=== PATIENT | female | born 1970 | race Hispanic/Latino ===

== ENCOUNTER 2016-12-24 17:53 | Emergency (ER) | payer OTHER ==
[~2016-12-24] VITALS: Ht 157.5 cm; Wt 65.8 kg
[~2016-12-24 17:53] MED LIST: CIPRO 500MG TA500 MG PO; HYDROCODONE/ACE1 TA1 PO; LANTUS100 U/ML SC; NOVOLOG100 U/ML SC; PHENERGAN25 M1 PO; ZOFRAN ODT4 MG PO
[2016-12-24 18:12] VITALS: BP 145/85
--- NOTE | 2016-12-24 20:15 | ED GENERAL ADULT ---
History of Present Illness General Chief Complaint: General Adult Stated Complaint: CHEST PAIN, URI SYMTPOMS Source: patient, family Exam Limitations: no limitations Vital Signs & Intake/Output Vital Signs & Intake/Output Vital Signs Date Time Temp Pulse Resp B/P Pulse O2 O2 Flow FiO2 Ox Delivery Rate 12/24 2030 101.1 12/24 1812 101.1 106 18 145/85 97 Room Air Allergies Coded Allergies: No Known Allergies (02/03/16) Reconcile Medications Benzonatate (Tessalon Perle) 100 MG CAPSULE 1 CAP PO TID PRN COUGH HYDROCODONE/ACETAMINOPHEN (Hydrocodon-Acetaminophen 5-325) 1 TAB TAB 1-2 TAB PO Q6P PRN PAIN Ibuprofen 600 MG TABLET 1 TAB PO TID PRN pain/fevers with food Insulin Aspart, Recombinant (Novolog) 100 U/ML OBED 0 UNITS SC TIDAC GLUCOSE CONTROL (Reported) BLOOD SUGAR # OF UNITS < 80 NONE 80-150 NONE 151-200 4 UNITS 201-250 6 UNITS 251-300 8 UNITS 301-350 10 UNITS 351-400 12 UNITS >400 14 UNITS and call Insulin Glargine, Recombinan (Lantus) 100 U/ML OBED 14 UNITS SC BID DIABETES ( Reported) Ondansetron (Zofran Odt) 4 MG ODT 1 TAB PO Q6P PRN NAUSEA Ondansetron (Zofran Odt) 4 MG TAB.RAPDIS 1 TAB SL TID PRN nausea Oseltamivir Phosphate (Tamiflu) 75 MG CAPSULE 1 CAP PO BID influenza Promethazine Hydrochloride (Phenergan) 25 MG TAB 1 TAB PO Q8P PRN NAUSEA Triage Note: REPORTS GENERALIZED BODY ACHES AND COUGH THAT STARTED YESTERDAY AND WORSENING SINCE. NOTED TO BE FEBRILE AT 101.1 Triage Nurses Notes Reviewed? yes : No Patient currently breastfeeds: No HPI: Patient is a 46-year-old female presents complaining of body aches, cough, fevers, headaches. Symptoms onset yesterday. Cough is nonproductive. Patient reports her blood sugars have been in the 220s at home. Patient has been taking DayQuil and NyQuil with no improvement. Symptoms are currently severe. Patient denies sick contacts, recent travel, has not had an influenza vaccination this season. (JOHN CRESPO,JOSE) Past History Travel History Traveled to [place] past 21 day No Medical History Any Pertinent Medical History? see below for history Neurological: NONE EENT: NONE Cardiovascular: NONE Respiratory: NONE Gastrointestinal: NONE Hepatic: NONE Renal: NONE Musculoskeletal: NONE Psychiatric: NONE Endocrine: diabetes Blood Disorders: NONE Cancer(s): NONE NAPHTHALENE OPERATOR/Reproductive: NONE Surgical History Surgical History: oophorectomy Psychosocial History What is your primary language Sinhala Tobacco Use: Quit <30 days ago Family History Hx Contributory? No (JOSE LOTT) Review of Systems Review of Systems Constitutional: Reports: chills, fever, malaise. EENTM: Reports: nasal congestion. Respiratory: Reports: cough. Cardiovascular: Reports: chest pain. GI: Reports: nausea, vomiting. Denies: abdominal pain. Musculoskeletal: Reports: muscle pain. Skin: Reports: no symptoms. Neurological/Psychological: Reports: headache. Hematologic/Endocrine: Reports: see HPI. Immunologic/Allergic: Reports: no symptoms. (JOSE LOTT) Physical Exam Physical Exam General Appearance: well developed/nourished, alert, awake Head: atraumatic, normal appearance Eyes: Bilateral: normal appearance, PERRL, EOMI. Ears, Nose, Throat: normal pharynx, normal ENT inspection, hearing grossly normal, nasal congestion Neck: normal inspection, supple, full range of motion Respiratory: normal breath sounds, no respiratory distress, lungs clear Cardiovascular: regular rate/rhythm (no appreciable murmur) Gastrointestinal: soft, non-tender Back: normal inspection, normal range of motion Extremities: normal inspection, normal capillary refill, normal range of motion, no edema Neurologic/Psych: no motor/sensory deficits, awake, alert, oriented x 3, normal gait, normal mood/affect Skin: intact, normal color, warm/dry Lymphatic: no anterior cervical gayathri Core Measures ACS in differential dx? No CVA/TIA Diagnosis: No Severe Sepsis Present: No Septic Shock Present: No (JOSE LOTT) Progress Differential Diagnoses I considered the following diagnoses in my evaluation of the patient: Influenza, pneumonia, viral syndrome, diabetic emergency Plan of Care: Orders Procedure Date/time Status FingerStick- Glucose 12/24 2019 Active RAPID VIRAL INFLUENZA A 12/24 1815 Complete EKG 12/24 175 Active Patient nontoxic appearing. Patient tolerated water and oral Ibuprofen in the ED. appears stable for discharge. (JOSE LOTT) Initial ED EKG: sinus rhythm, no acute ST/T-wave abnormalities (JOSE LOTT) Departure Departure Time of Disposition: 2023 Disposition: HOME OR SELF CARE Condition: Stable Clinical Impression Primary Impression: Influenza Referrals: YUDI SALCEDO MD (PCP/Family) Additional Instructions: Drink plenty fluids and rest. Follow-up with her primary care provider if no improvement within 3-4 days. Tylenol every 4-6 hours as needed for fevers. Return to the emergency department if difficulty breathing, unable to say hydrated, or worsening of symptoms. Departure Forms: Customer Survey General Discharge Information Prescriptions: Current Visit Scripts Oseltamivir Phosphate (Tamiflu) 1 CAP PO BID #10 CAP Ibuprofen 1 TAB PO TID PRN pain/fevers #15 TAB with food Ondansetron (Zofran Odt) 1 TAB SL TID PRN nausea #10 TAB Benzonatate (Tessalon Perle) 1 CAP PO TID PRN COUGH #21 CAP (JOSE LOTT) PA/KNITTING SUPERVISOR Co-Sign Statement Statement: ED Attending supervision documentation- [] I saw and evaluated the patient. I have also reviewed all the pertinent lab results and diagnostic results. I agree with the findings and the plan of care as documented in the PA's/KNITTING SUPERVISOR's documentation. [X] I have reviewed the ED Record and agree with the PA's/KNITTING SUPERVISOR's documentation. [] Additions or exceptions (if any) to the PAs/KNITTING SUPERVISOR's note and plan are summarized below: [] (CHRISTY BRO,CHANDRIKA) Critical Care Note Critical Care Note Critical Care Time: non-applicable (JOSE LOTT)
[2016-12-24] MEDS ORDERED: IBUPROFEN600 M1 PO (20:26)
[2016-12-24] MEDS ORDERED: TAMIFLU75 M1 PO (20:26)
[2016-12-24] MEDS ORDERED: ZOFRAN ODT4 M1 SL (20:26)
[2016-12-24] MEDS ORDERED: TESSALON PERLE100 M1 PO (20:26)
== END 2016-12-24 20:32 ==
LOC: ERH 17:53
DX: R07.9 Chest pain, unspecified (principal); J11.1 Influenza due to unidentified influenza virus with other respiratory manifestations; Z87.891 Personal history of nicotine dependence
CPT/HCPCS: 87804; 87804-59; 93005; 93010

== ENCOUNTER 2017-03-07 16:45 | Emergency (ER) | payer OTHER ==
[~2017-03-07] VITALS: Ht 157.5 cm; Wt 68.5 kg
[~2017-03-07 16:45] MED LIST changes: +IBUPROFEN600 M1 PO; +TAMIFLU75 M1 PO; +TESSALON PERLE100 M1 PO; +ZOFRAN ODT4 M1 SL
--- NOTE | 2017-03-07 18:38 | ED GENERAL ADULT ---
History of Present Illness General Chief Complaint: General Adult Stated Complaint: SENT BY OB FOR IRREGULAR LABS Source: patient Exam Limitations: no limitations Vital Signs & Intake/Output Vital Signs & Intake/Output Vital Signs Date Time Temp Pulse Resp B/P Pulse O2 O2 Flow FiO2 Ox Delivery Rate 03/07 1941 97.3 87 16 160/86 100 Room Air 03/07 1707 97.3 98 20 154/82 100 Room Air Room Air Allergies Coded Allergies: No Known Allergies (02/03/16) Reconcile Medications Insulin Aspart (Novolog) 100 UNIT/ML VIAL 10 UNITS SC BID DM (Reported) Insulin Aspart, Recombinant (Novolog Flexpen) 100 UNIT/ML INSULN.PEN 8 UNITS SC QAM DM (Reported) Insulin Glargine,Hum.rec.anlog (Lantus Solostar) 100 UNIT/ML (3 ML) INSULN.PEN 15 UNITS SC BID DM (Reported) Labetalol HCl 100 MG TABLET 1 TAB PO BID BP (Reported) Lisinopril 5 MG TABLET 1 TAB PO DAILY BP (Reported) Promethazine Hydrochloride (Phenergan) 25 MG TAB 1 TAB PO Q8P PRN NAUSEA Triage Note: PT TO ED FROM PMD DR SALCEDO, SENT IN FOR ABNORMAL BLOODWORK FOR HGB 9.8, HCT 32.4 ON 03/04/17. Triage Nurses Notes Reviewed? yes Onset: Gradual Duration: week(s): (1) Timing: no prior history Injury Environment: home Severity: moderate : No Patient currently breastfeeds: No HPI: Patient is a 46-year-old female presenting to the emergency department for "irregular labs". Patient reports that she saw her primary care physician the other day and had routine blood work and it showed that she was anemic and she was told by her doctor to come to the emergency department for evaluation. Patient reports that over the past 3 months she has haD increased blood flow with her menstruation. Currently on her period that started 3-4 days ago. Passing intermittent clots. She is not soaking more than 1 pad an hour. Denies any lightheadedness or dizziness. No malaise or fatigue. No fevers or chills. Denies any urinary frequency urgency or dysuria. She does report that she may have felt short of breath with a long amount of exertion. No abdominal pain. No chest pain or palpitations. History of anemia in the past. Denies any hematuria. No coughing up blood. Denies any blood in stool. (ED SARABIA) Past History Travel History Traveled to [place] past 21 day No Medical History Any Pertinent Medical History? see below for history Neurological: NONE EENT: NONE Cardiovascular: NONE Respiratory: NONE Gastrointestinal: NONE Hepatic: NONE Renal: NONE Musculoskeletal: NONE Psychiatric: NONE Endocrine: diabetes Blood Disorders: NONE Cancer(s): NONE DOCTORATE OF CHIROPRACTIC/Reproductive: NONE Surgical History Surgical History: oophorectomy Psychosocial History What is your primary language Omani Tobacco Use: Never used ETOH Use: denies use Illicit Drug Use: denies illicit drug use Family History Hx Contributory? No (ED SARABIA) Review of Systems Review of Systems Constitutional: Reports: no symptoms. Comments Review of systems: See HPI, All other systems negative. Constitutional, no chills fever or weight loss HEENT: No visual changes no sore throat no congestion Cardiovascular: No chest pain ,palpitation , orthopnea or ankle swelling Skin, no jaundice no rashes Respiratory: No cough sputum or hemoptysis GI: No nausea no vomiting : No dysuria No hematuria Muscle skeletal: no back pain, no neck pain, Neurologic: No numbness no confusion Psych: No stress anxiety or depression,. Heme/endocrine: No bruising no bleeding no polyuria or polydipsia Immunology: No splenectomy or history of AIDS (ED SARABIA) Physical Exam Physical Exam General Appearance: well developed/nourished, no apparent distress, alert, comfortable Comments: Well-developed well-nourished person in no acute distress HEENT: Pupils equally round and reactive to light and accommodation. Nose is atraumatic. External auditory canal and Tympanic membranes clear. Pharynx normal. No swelling or edema. No pallor noted to palpable conjunctiva bilaterally. No oral pallor noted. Neck: Normal infection Back: Nontender, no CVA tenderness. Full range of motion Cardiovascular: Regular rate and rhythms no murmurs rubs or gallops, normal JVP Respiratory: Chest nontender. No respiratory distress.breath sounds clear to auscultation bilaterally Abdomen: Soft, nontender nondistended, no appreciable organomegaly. Normal bowel sounds. No ascites, no rebound or guarding. RECTAL: Deferred by patient Extremity: No edema Neuro: Alert oriented x3 Skin: No appreciable rash on exposed skin, skin is warm and dry. Psych: Mood and affect is normal, memory and judgment is normal. Core Measures ACS in differential dx? No CVA/TIA Diagnosis: No Severe Sepsis Present: No Septic Shock Present: No (ED SARABIA) Progress Differential Diagnoses I considered the following diagnoses in my evaluation of the patient: Acute on chronic anemia, dysmenorrhea, symptomatic anemia, dehydration, electrolyte abnormality Plan of Care: Orders Procedure Date/time Status Consistent Carbohydrate 1 03/07 D Active TYPE & SCREEN (NOT X-MATCH) 03/07 1931 Active MISTAKE 03/07 1925 Active FingerStick- Glucose 03/07 1925 Active TOTAL IRON BINDING CAPACITY 03/07 1837 Complete PARTIAL THROMBOPLASTIN TIME 03/07 1837 Complete PROTHROMBIN TIME 03/07 1837 Complete SERUM IRON 03/07 1837 Complete COMPREHENSIVE METABOLIC PANEL 03/07 1837 Complete CBC WITHOUT DIFFERENTIAL 03/07 1837 Complete VITAMIN B12 03/07 1837 Complete Laboratory Tests 03/07/17 1851: Anion Gap 11, Estimated GFR > 60, BUN/Creatinine Ratio 26.7 H, Glucose 213 H, Calcium 9.7, Iron 30 L, TIBC 446, Total Bilirubin 0.5, AST 28, ALT 40, Alkaline Phosphatase 74, Total Protein 7.7, Albumin 4.3, Globulin 3.4, Albumin/Globulin Ratio 1.3, Vitamin B12 798, PT 10.1, INR 0.96, APTT 29, CBC w Diff NO MAN DIFF REQ, RBC 3.66 L, MCV 81.2, MCH 26.1 L, RDW 17.6 H, MPV 9.2, Gran % 74.2, Lymphocytes % 20.1 L, Monocytes % 3.8, Eosinophils % 1.2, Basophils % 0.7, Absolute Granulocytes 6.5, Absolute Lymphocytes 1.8, Absolute Monocytes 0.3, Absolute Eosinophils 0.1, Absolute Basophils 0.1, PUBS MCHC 32.2 L Initial ED EKG: none Comments: On arrival patient is awake alert oriented 3, vitals are stable. No abdominal pain on exam. Patient reports that she currently having a heavy menstrual period has been for the past 3 months every time she gets it. She is currently on day 3 or 4. She had routine blood work done by her primary care physician which revealed anemia. H&H is slightly low, patient has history of anemia. She is currently asymptomatic, vitals are stable. No indications of acute blood loss. She is not saturating more than 1 pad an hour. She will follow-up with her LOCATION ANALYST for further evaluation, may need some type of hormonal regulation to help with dysmenorrhea. They also tried her H&H to ensure that she does not need blood transfusions in the for future. No indication for blood transfusion at this time. No history of cardiac issues. (ED SARABIA) Departure Departure Time of Disposition: 2041 Disposition: HOME OR SELF CARE Condition: Stable Clinical Impression Primary Impression: Anemia Qualifiers: Anemia type: unspecified type Qualified Code: D64.9 - Anemia, unspecified Secondary Impressions: Dysmenorrhea Referrals: YUDI SALCEDO MD (PCP/Family) Additional Instructions: FOLLOW UP with your LOCATION ANALYST they will need to follow your blood levels. Increase fluids. Return for any worsening symptoms or concerns. Return if you're saturating more than 1 pad an hour. Departure Forms: Customer Survey General Discharge Information (ED SARABIA) PA/TICKET WORKER Co-Sign Statement Statement: ED Attending supervision documentation- [] I saw and evaluated the patient. I have also reviewed all the pertinent lab results and diagnostic results. I agree with the findings and the plan of care as documented in the PA's/TICKET WORKER's documentation. x I have reviewed the ED Record and agree with the PA's/TICKET WORKER's documentation. [] Additions or exceptions (if any) to the PAs/TICKET WORKER's note and plan are summarized below: [] (LAYA BRO,EVERARDO) Critical Care Note Critical Care Note Critical Care Time: non-applicable (ED SARABIA)
[2017-03-07 19:16] LABS: ABSOLUTE BASOPHIL COUNT 0.1 /CUMM (0.0-0.2); ABSOLUTE EOSINOPHIL COUNT 0.1 /CUMM (0.0-0.7); ABSOLUTE GRANULOCYTE CT 6.5 /CUMM (1.4-6.5); ABSOLUTE LYMPH COUNT 1.8 /CUMM (1.2-3.4); ABSOLUTE MONOCYTE COUNT 0.3 /CUMM (0.10-0.60); BASOPHIL % 0.7 % (0.0-2.0); EOSINOPHIL % 1.2 % (0-5); GRANULOCYTE % 74.2 % (42.2-75.2); HEMATOCRIT 29.7 % (37-47); MEAN CORPUSCULAR HGB 26.1 PG (27.0-31.0); MEAN CORPUSCULAR HGB CONC 32.2 G/DL (33.0-37.0); MEAN CORPUSCULAR VOLUME 81.2 FL (81.0-99.0); MEAN PLATELET VOLUME 9.2 FL (7.4-10.4); PLATELET COUNT 315 /CUMM (130-400); RBC DISTRIBUTION WIDTH 17.6 % (11.5-14.5); RED BLOOD CELL CT 3.66 /CUMM (4.20-5.40); WHITE BLOOD CELL COUNT 8.8 /CUMM (4.8-10.8)
[2017-03-07 19:27] LABS: PT 10.1 SEC (9.4-12.5); PTT 29 SEC (25-37)
[2017-03-07] MEDS ORDERED: LISINOPRIL5 M1 PO (20:22)
[2017-03-07] MEDS ORDERED: LABETALOL HCL100 M1 PO (20:22)
[2017-03-07] MEDS ORDERED: NOVOLOG FL100 UNIT/1 SC (20:23)
[2017-03-07] MEDS ORDERED: LANTUS SOL100 UNIT/1 SC (20:23)
[2017-03-07] MEDS ORDERED: NOVOLOG100 UNIT/2 SC (20:23)
[2017-03-07 20:57] VITALS: BP 156/87
== END 2017-03-07 20:57 ==
LOC: ERH 16:45
PROVIDERS: Physician Assistant
DX: D64.9 Anemia, unspecified (principal); N94.6 Dysmenorrhea, unspecified